=== PATIENT | male | born 1995 | race Hispanic/Latino ===

== ENCOUNTER 2018-06-04 01:54 | Emergency (ER) | payer SELFPAY ==
[2018-06-04 01:57] VITALS: RESP 16; O2SAT 98
[2018-06-04 03:00] LABS: BASO % 0.5 % (0.0-2.0); EOS % 0.7 % (0.0-4.0); HEMOGLOBIN 16.6 g/dL (12.0-18.0); LYMPH # 2.4 K/uL (1.0-4.3); LYMPH % 37.5 % (20.0-40.0); MEAN CORPUSCULAR HGB CONC 35.3 g/dL (33.0-37.0); MEAN PLATELET VOLUME 7.6 fl (7.2-11.7); MONO # 0.4 K/uL (0.0-0.8); MONO % 5.8 % (0.0-10.0); NEUT # 3.6 K/uL (1.8-7.0); NEUT % 55.5 % (50.0-75.0); NRBC % 0.1 % (0.0-0.0); RBC 5.54 Mil/uL (4.40-5.90); RED CELL DISTRIBUTION WIDTH 13.2 % (11.5-14.5); WHITE BLOOD COUNT 6.4 K/uL (4.8-10.8)
[2018-06-04 03:08] LABS: ALB/GLOB RATIO 1.4 (1.0-2.1); ALBUMIN 4.7 g/dL (3.5-5.0); ALT/SGPT 41 U/L (21-72); AST/SGOT 33 U/L (17-59); BLOOD UREA NITROGEN 14 mg/dl (9-20); CALCIUM 9.2 mg/dL (8.4-10.2); GFR NON-AFRICAN AMERICAN > 60
--- NOTE | 2018-06-04 06:08 | ED PDOC ---
HPI: Psych/Substance Abuse History Per: Patient Additional Complaint(s): Pt. brought in by EMS and was found sleeping on the tabares of a car. Admits to drinking alcohol. Offers no complaints at this time. <Robert Wheeler - Last Filed: 06/04/18 05:58> <Ayna Prajapati - Last Filed: 06/05/18 05:16> Time Seen by Provider: 06/04/18 02:11 Chief Complaint (Nursing): Alcohol Ingestion Past Medical History Reviewed: Historical Data, Nursing Documentation, Vital Signs Vital Signs: Last Vital Signs Temp 97.5 F L 06/04/18 01:55 Pulse 114 H 06/04/18 01:55 Resp 16 06/04/18 01:55 BP 137/82 06/04/18 01:55 Pulse Ox 98 06/04/18 01:55 - Family History Family History: States: No Known Family Hx <Robert Wheeler - Last Filed: 06/04/18 05:58> Vital Signs: Last Vital Signs Temp 98.3 F 06/04/18 07:22 Pulse 90 06/04/18 07:22 Resp 16 06/04/18 07:22 BP 131/72 06/04/18 07:22 Pulse Ox 98 06/04/18 07:22 <Ayan Prajapati - Last Filed: 06/05/18 05:16> - Allergies Allergies/Adverse Reactions: Allergies Allergy/AdvReac Type Severity Reaction Status Date / Time No Known Allergies Allergy Verified 06/04/18 01:57 Review of Systems Review Of Systems: ROS cannot be obtained secondary to pt's inabilty to answer questions. <Robert Wheeler - Last Filed: 06/04/18 05:58> Physical Exam - Reviewed Nursing Documentation Reviewed: Yes Vital Signs Reviewed: Yes - Physical Exam Appears: Positive for: Well, Non-toxic, No Acute Distress Head Exam: Positive for: ATRAUMATIC, NORMAL INSPECTION, NORMOCEPHALIC Skin: Positive for: Normal Color, Warm. Negative for: Rash Eye Exam: Positive for: EOMI, Normal appearance, PERRL ENT: Positive for: Normal ENT Inspection, TM Is/Are (no hemotympanum b/l) Neck: Positive for: Normal, Painless ROM Cardiovascular/Chest: Positive for: Regular Rate, Rhythm Respiratory: Positive for: CNT, Normal Breath Sounds Gastrointestinal/Abdominal: Positive for: Normal Exam, Soft. Negative for: Tenderness Back: Positive for: Normal Inspection Extremity: Positive for: Normal ROM Neurologic/Psych: Positive for: Alert, Oriented (x3), Gait (steady, unassisted), Other (slurred speech, AOB). Negative for: Aphasia, Facial Droop <Robert Wheeler - Last Filed: 06/04/18 05:58> - Laboratory Results Result Diagrams: 06/04/18 02:57 06/04/18 02:57 - ECG O2 Sat by Pulse Oximetry: 98 - Progress ED Course And Treament: Labs ordered. 0430 Sleeping comfortably. No distress. 0600 AAOx3. Gait steady unassisted. <Robert Wheeler - Last Filed: 06/04/18 05:58> - Laboratory Results Result Diagrams: 06/04/18 02:57 06/04/18 02:57 <Ayan Prajapati - Last Filed: 06/05/18 05:16> Disposition - Patient ED Disposition Is Patient to be Admitted: No - Disposition Disposition: Routine/Home Disposition Time: 06:11 <Robert Wheeler - Last Filed: 06/04/18 05:58> <Ayan Prajapati - Last Filed: 06/05/18 05:16> - Clinical Impression Clinical Impression: Alcohol intoxication - Disposition [facility] Condition: IMPROVED Additional Instructions: MAMTA ARANA, thank you for letting us take care of you today. Your provider was Ayan Prajapati MD and you were treated for ETOH. The emergency medical care you received today was directed at your acute symptoms. If you were prescribed any medication, please fill it and take as directed. It may take several days for your symptoms to resolve. Return to the Emergency Department if your symptoms worsen, do not improve, or if you have any other problems. Please contact your doctor or call one of the physicians/clinics you have been referred to that are listed on the Patient Visit Information form that is included in your discharge packet. Bring any paperwork you were given at discharge with you along with any medications you are taking to your follow up visit. Our treatment cannot replace ongoing medical care by a primary care provider outside of the emergency department. Thank you for allowing the [facility] team to be part of your care today. If you had an X-Ray or CT scan: A Radiologist will review the ED reading if any change in treatment is needed we will contact you. If you had a blood, urine, or wound culture: It will take several days for the results, if any change in treatment is needed we will contact you. If you had an STI test: It will take 48 hours for the results. Please call after 1 week if you have not heard back. Instructions: Alcohol Abuse and Alcoholism (DC) Forms: [employer]) - [place] / RESEARCH ENVIRONMENTAL SCIENTIST / Resident Statement MD/DO has reviewed & agrees with the documentation as recorded. <Ayan Prajapati - Last Filed: 06/05/18 05:16>
[2018-06-04 07:25] VITALS: BP 131/72; PULSE 90; TEMP 98.3
== END 2018-06-04 07:22 | disposition home or self-care (01) ==
LOC: H.ER 01:54
DX: F10.129 Alcohol abuse with intoxication, unspecified (principal)
CPT/HCPCS: 80053; 82948; 85025; 99283; G0480